=== PATIENT | male | born 1975 | race Caucasian/White ===

== ENCOUNTER 2017-11-27 19:44 | Emergency (ER) | payer OTHER ==
--- NOTE | 2017-11-27 20:29 | EDM.PDOC ---
ED HPI GENERAL MEDICAL PROBLEM - General Stated Complaint: RT HAND NUMBNESS Time Seen by Provider: 11/27/17 20:14 - History of Present Illness INITIAL COMMENTS - FREE TEXT/NARRATIVE: HISTORY AND PHYSICAL: History of present illness: 42-year-old white male presents with concern for right hand pain and paresthesia he denies any known trauma there's been no other neurological signs or symptoms and no other complaints. Review of systems: As per history of present illness and below otherwise all systems reviewed and negative. Past medical history: As per history of present illness and as reviewed below otherwise noncontributory. Surgical history: As per history of present illness and as reviewed below otherwise noncontributory. Social history: No reported history of drug or alcohol abuse. Family history: As per history of present illness and as reviewed below otherwise noncontributory. Physical exam: HEENT: Atraumatic, normocephalic, pupils reactive, negative for conjunctival pallor or scleral icterus, mucous membranes moist, throat clear, neck supple, nontender, trachea midline. Lungs: Clear to auscultation, breath sounds equal bilaterally, chest nontender. Heart: S1S2, regular, negative for clicks, rubs, or JVD. Abdomen: Soft, nondistended, nontender. Negative for masses or hepatosplenomegaly. Negative for costovertebral tenderness. Pelvis: Stable nontender. Genitourinary: Deferred. Rectal: Deferred. Extremities: Right hand has minor abrasions noted motor and sensory CMS are unremarkable there's no crepitation or point tenderness no erythema Neuro: Awake, alert, oriented. Cranial nerves II through XII unremarkable. Cerebellum unremarkable. Motor and sensory unremarkable throughout. Exam nonfocal. Diagnostics: X-ray right hand Therapeutics: None Impression: 1 right hand pain/paresthesia etiology to be determined Definitive disposition and diagnosis as appropriate pending reevaluation and review of above. ED ROS GENERAL - Review of Systems Review Of Systems: ROS reveals no pertinent complaints other than HPI. ED EXAM, GENERAL - Physical Exam Exam: See Below (See dictation) Course - Orders/Labs/Meds Orders: Active Orders 24 hr Category Date Time Status Hand 2V Rt [CR] Stat Exams 11/27/17 20:16 Ordered Departure - Departure Time of Disposition: 20:28 Disposition: Home, Self-Care 01 Condition: Good Clinical Impression: Hand pain, Paresthesia - Discharge Information *PRESCRIPTION DRUG MONITORING PROGRAM REVIEWED*: Not Applicable *COPY OF PRESCRIPTION DRUG MONITORING REPORT IN PATIENT VINITA: Not Applicable Referrals: PCP,Not In Area [Primary Care Provider] - Additional Instructions: The following information is given to patients seen in the emergency department who are being discharged to home. This information is to outline your options for follow-up care. We provide all patients seen in our emergency department with a follow-up referral. The need for follow-up, as well as the timing and circumstances, are variable depending upon the specifics of your emergency department visit. If you don't have a primary care physician on staff, we will provide you with a referral. We always advise you to contact your personal physician following an emergency department visit to inform them of the circumstance of the visit and for follow-up with them and/or the need for any referrals to a consulting specialist. The emergency department will also refer you to a specialist when appropriate. This referral assures that you have the opportunity for followup care with a specialist. All of these measure are taken in an effort to provide you with optimal care, which includes your followup. Under all circumstances we always encourage you to contact your private physician who remains a resource for coordinating your care. When calling for followup care, please make the office aware that this follow-up is from your recent emergency room visit. If for any reason you are refused follow-up, please contact the [facility] emergency department at and asked to speak to the emergency department charge nurse. [facility] specialty clinic-Plastics [address] [place] [id number] Velcro splint as directed Motrin/Tylenol as directed follow-up hand surgery above call to schedule routine appointment return as needed as discussed - My Orders Last 24 Hours: My Active Orders 11/27/17 20:16 Hand 2V Rt [CR] Stat - Assessment/Plan Last 24 Hours: My Active Orders 11/27/17 20:16 Hand 2V Rt [CR] Stat
--- NOTE | 2017-11-27 22:28 | CR ---
EXAM DATE: 11/27/17 PATIENT'S AGE: 42 Patient: DIEGO GOODMAN Facility: [place], [place] Site . Site : 1975 Study: XRay Extremity Right hand [id number]/24/2018 8:49:53 PM Ordering Physician: Yris Grayson Final Report: INDICATION: Pain and swelling for 3 days. FINDINGS: There is dorsal soft tissue swelling over the right 5th metacarpal. The joint spaces are preserved. Bony mineralization is normal. There is no fracture nor dislocation. IMPRESSION: Soft tissue swelling but no underlying osseous or joint abnormality. Dictated by Mary Salmeron MD @ Nov 27 2017 8:52PM (Electronic Signature) Report Signed by Proxy. SETH
== END 2017-11-27 21:17 | disposition home or self-care (01) ==
LOC: MW.ED 19:44
DX: M79.641 Pain in right hand (principal); R20.2 Paresthesia of skin
CPT/HCPCS: 73120-26-RT; 73120-RT; 99282; 99283

== ENCOUNTER 2017-12-18 18:41 | Emergency (ER) | payer OTHER ==
--- NOTE | 2017-12-18 19:15 | EDM.PDOC ---
ED HPI GENERAL MEDICAL PROBLEM - General Chief Complaint: Respiratory Problem Stated Complaint: PT HAS CHEST COLD Time Seen by Provider: 12/18/17 18:42 Source of Information: Reports: Patient History Limitations: Reports: No Limitations - History of Present Illness INITIAL COMMENTS - FREE TEXT/NARRATIVE: HISTORY AND PHYSICAL: History of present illness: Patient is a 42 year old male who presents to the ED with complaints of sinus pressure, sore throat and cough 2 days. He states he has generally felt unwell with some sinus symptoms for approximately one week but worse over the last 2 days. He is a daily smoker. He denies any fever, chills, chest pain, shortness of breath. Denies any abdominal pain, nausea, vomiting, diarrhea or constipation. Denies any trauma, falls or recent injury. Review of systems: As per history of present illness and below otherwise all systems reviewed and negative. Past medical history: As per history of present illness and as reviewed below otherwise noncontributory. Surgical history: As per history of present illness and as reviewed below otherwise noncontributory. Social history: No reported history of drug or alcohol abuse. Family history: As per history of present illness and as reviewed below otherwise noncontributory. Physical exam: General: Well-developed and well-nourished 42-year-old male. Alert and oriented. Nontoxic appearing and in no acute distress. HEENT: Atraumatic, normocephalic, pupils equal and reactive bilaterally, multiple healed scars noted to face, negative for conjunctival pallor or scleral icterus, mucous membranes moist, maxillary sinus pain with palpation bilaterally, posterior oropharynx mild erythema without exudate, neck supple, nontender, trachea midline. No drooling or trismus noted. No meningeal signs Lungs: Clear to auscultation, breath sounds equal bilaterally, chest nontender. Heart: S1S2, regular rate and rhythm without overt murmur Abdomen: Soft, nondistended, nontender. Negative for masses or hepatosplenomegaly. Negative for costovertebral tenderness. Pelvis: Stable nontender. Genitourinary: Deferred. Rectal: Deferred. Skin: Intact, warm, dry. No lesions or rashes noted. Extremities: Atraumatic, moves all per self, negative for cords or calf pain. Neurovascular unremarkable. Neuro: Awake, alert, oriented. Cranial nerves II through XII unremarkable. Cerebellum unremarkable. Motor and sensory unremarkable throughout. Exam nonfocal. Notes: Chest x-ray is normal. Due to the weeklong of sinus-like symptoms and will treat for sinusitis. We reviewed medication education. He voices understanding and is agreeable to plan of care. Denies any further questions or concerns at this time. Diagnostics: Chest x-ray Therapeutics: None Prescription: Augmentin Impression: Sinusitis Plan: 1. Stop Smoking. Drink plenty of water. Small frequent meals. 2. Tylenol and/or ibuprofen as needed for pain management. 3. Please follow-up with your primary caregiver in the next 1-2 days. Return to the ED as needed and as discussed. Definitive disposition and diagnosis as appropriate pending reevaluation and review of above. throat Pain Score (Numeric/FACES): 8 - Related Data Allergies Allergy/AdvReac Type Severity Reaction Status Date / Time No Known Allergies Allergy Verified 12/18/17 19:14 Home Meds: Home Meds Amoxicillin/Potassium Clav [Augmentin 875-125 Tablet] 1 each PO BID 10 Days #20 tablet 12/18/17 [Rx] Past Medical History HEENT History: Reports: None Musculoskeletal History: Reports: None - Past Surgical History HEENT Surgical History: Reports: Other (See Below) Other HEENT Surgeries/Procedures: plates to left eye Musculoskeletal Surgical History: Reports: Other (See Below) Other Musculoskeletal Surgeries/Procedures:: fx bilateral hand, pins 1989 Social & Family History - Family History Family Medical History: Noncontributory - Caffeine Use Caffeine Use: Reports: Coffee, Energy Drinks, Soda ED ROS GENERAL - Review of Systems Review Of Systems: ROS reveals no pertinent complaints other than HPI. ED EXAM, GENERAL - Physical Exam Exam: See Below (See dictation) Course - Vital Signs Last Recorded V/S: Last Vital Signs Temp 98 F 12/18/17 19:09 Pulse 78 12/18/17 19:09 Resp 18 12/18/17 19:09 BP 105/69 12/18/17 19:09 Pulse Ox 98 12/18/17 19:09 - Orders/Labs/Meds Orders: Active Orders 24 hr Category Date Time Status Chest 2V [CR] Stat Exams 12/18/17 19:20 Ordered Departure - Departure Time of Disposition: 19:58 Disposition: Home, Self-Care 01 Clinical Impression: Sinusitis Qualifiers: Sinusitis location: maxillary Chronicity: acute Recurrence: non-recurrent Qualified Code(s): J01.00 - Acute maxillary sinusitis, unspecified - Discharge Information Prescriptions: Amoxicillin/Potassium Clav [Augmentin 275125 Tablet] 1 each PO BID 10 Days #20 tablet Instructions: Sinusitis, Adult, [id number] Referrals: PCP,None [Primary Care Provider] - Forms: ED Department Discharge Additional Instructions: The following information is given to patients seen in the emergency department who are being discharged to home. This information is to outline your options for follow-up care. We provide all patients seen in our emergency department with a follow-up referral. The need for follow-up, as well as the timing and circumstances, are variable depending upon the specifics of your emergency department visit. If you don't have a primary care physician on staff, we will provide you with a referral. We always advise you to contact your personal physician following an emergency department visit to inform them of the circumstance of the visit and for follow-up with them and/or the need for any referrals to a consulting specialist. The emergency department will also refer you to a specialist when appropriate. This referral assures that you have the opportunity for follow-up care with a specialist. All of these measure are taken in an effort to provide you with optimal care, which includes your follow-up. Under all circumstances we always encourage you to contact your private physician who remains a resource for coordinating your care. When calling for follow-up care, please make the office aware that this follow-up is from your recent emergency room visit. If for any reason you are refused follow-up, please contact the [facility] Emergency Department at and asked to speak to the emergency department charge nurse. [facility] [address] [place] [id number] 1. Please stop smoking. Drink plenty of water to prevent dehydration. Small frequent meals throughout the day to prevent stomach upset. 2. Tylenol and/or ibuprofen as needed for pain management. 3. Please follow-up with your primary caregiver in the next 1-2 days. Return to the ED as needed and as discussed. - My Orders Last 24 Hours: My Active Orders 12/18/17 19:20 Chest 2V [CR] Stat - Assessment/Plan Last 24 Hours: My Active Orders 12/18/17 19:20 Chest 2V [CR] Stat
--- NOTE | 2017-12-21 08:48 | CR ---
EXAM DATE: 12/18/17 PATIENT'S AGE: 42 Patient: DIEGO GOODMAN Facility: [place], [place] Site . Site : 1975 Study: XRay Chest [id number]/14/2018 7:49:03 PM Ordering Physician: Doctor Medina Final Report: INDICATION: Cough, fever, nausea x3 days. TECHNIQUE: Chest 2 views COMPARISON: None FINDINGS: Cardiovascular and mediastinum: Heart size and vasculature are normal in caliber and appearance. Calcified lymph nodes within the left hilar region. Mediastinum is within normal limits. Lungs and pleural spaces: No focal consolidation. No sign of pleural effusion. No pneumothorax. Bones and soft tissues: No significant findings. IMPRESSION: No acute cardiopulmonary disease. Dictated by Christian Moody MD @ 12/18/2017 8:04:54 PM Dictated by: Christian Moody MD @ 12/18/2017 20:05:02 (Electronic Signature) Report Signed by Proxy. [facility]
== END 2017-12-18 20:05 | disposition home or self-care (01) ==
LOC: MW.ED 18:41
DX: J01.00 Acute maxillary sinusitis, unspecified (principal)
CPT/HCPCS: 71046; 71046-26; 99283